=== PATIENT | female | born 1980 | race Caucasian/White ===

== ENCOUNTER 2020-07-05 18:46 | Observation (INO) | payer MEDICARE, OTHER ==
[~2020-07-05] VITALS: Ht 170.2 cm; Wt 125.2 kg
[2020-07-05 19:23] LABS: HEMATOCRIT 31.3 % (37.0-47.0); HEMOGLOBIN 9.6 g/dl (12.0-16.0); IMMATURE GRANULOCYTES 0.2 % (0.0-5.0); MEAN CELL VOLUME 90.2 fL CALC (80.0-100.0); MEAN CORPUSCULAR HGB 27.7 pG CALC (26.0-32.0); MEAN CORPUSCULAR HGB CONC 30.7 g/dL CAL (32.0-36.0); NEUT# 3.41 thou/uL (2.00-7.15); RED BLOOD COUNT 3.47 mill/uL (4.20-5.60); RED CELL DISTRI WIDTH 15.6 % (11.5-15.5)
[2020-07-05 19:40] LABS: INTERNATIONAL NORMALIZED RATIO 3.7 RATIO (0.7-1.3); PROTHROMBIN TIME 34.5 SECONDS (9.0-12.5)
[2020-07-05 19:41] LABS: ALBUMIN 4.2 g/dL (3.2-5.0); ALKALINE PHOSPHATASE 53 u/l (38-126); ANION GAP 9 (6-22 (CALC)); BILIRUBIN, TOTAL 0.2 mg/dL (0.0-1.4); BUN 10 mg/dL (7-17); BUN/CREATININE RATIO 13 (12-20 (CALC)); CARBON DIOXIDE 27 mmol/l (22-30); CHLORIDE 107 mmol/l (95-108); CREATININE 0.8 mg/dL (0.5-1.0); GFR > 60 ML/MIN (>=60 (CALC)); GFR FOR AFR.AMER. > 60 ML/MIN (>=60 (CALC)); LIPASE 77 u/l (23-300); POTASSIUM 3.4 mmol/l (3.5-5.1); SGOT/AST 17 u/l (14-36); SODIUM 140 mmol/l (137-146); TOTAL PROTEIN 7.5 g/dL (6.3-8.2)
[2020-07-05 19:53] LABS: MYOGLOBIN 21 ng/mL (0 - 62)
[2020-07-05 20:20] LABS: URINE BILIRUBIN - DIPSTICK NEGATIVE (NEGATIVE); URINE BLOOD DIPSTICK MODERATE (NEGATIVE); URINE COLOR YELLOW; URINE GLUCOSE - DIPSTICK NEGATIVE (NEGATIVE); URINE KETONE NEGATIVE (NEGATIVE); URINE LEUK ESTERASE NEGATIVE (NEGATIVE); URINE NITRITE - DIPSTICK NEGATIVE (Negative); URINE PH 5.5 (4.5-8.0); URINE PROTEIN - DIPSTICK NEGATIVE (NEG-TRACE); URINE SPECIFIC GRAVITY 1.015; URINE UROBILINOGEN - DIPSTICK 0.2 E.U./dL (0.2)
[2020-07-05 20:32] LABS: URINE SQUAMOUS EPITHELIAL CELL FEW EPI/hpf (0-FEW); URINE WBC 0-2 WBC/hpf (0-5)
[2020-07-05] MEDS ORDERED: COUMADIN1 MG PO (20:40)
[2020-07-05] MEDS ORDERED: COUMADIN10 MG PO (20:40)
[2020-07-05] MEDS ORDERED: COREG3.125 MG PO (20:41)
[2020-07-05] MEDS ORDERED: ZESTRIL5 M1 PO (20:42)
[2020-07-05] MEDS ORDERED: VENLAFAXINE75 M2 PO (20:42)
[2020-07-05] MEDS ORDERED: PREGABALIN50 MG PO (20:43)
[2020-07-05] MEDS ORDERED: IRON325 M1 PO (20:44)
[2020-07-05] MEDS ORDERED: LASIX20 MG PO (20:45)
[2020-07-05] MEDS ORDERED: LEVOTHYROXIN150 MC1 PO (20:45)
[2020-07-05] MEDS ORDERED: BUSPIRONE10 MG PO (20:46)
[2020-07-05] MEDS ORDERED: PROTONIX40 M2 PO (20:59)
[2020-07-05] MEDS ORDERED: K-TABS10 MEQ PO (21:00)
[2020-07-05] MEDS ORDERED: ATORVASTATIN CA40 MG PO (21:01)
[2020-07-05 22:20] VITALS: BP 150/99
[2020-07-05 23:54] VITALS: BP 134/78
[2020-07-06 04:11] VITALS: BP 129/85
[2020-07-06 05:58] LABS: HEMATOCRIT 31.4 % (37.0-47.0); HEMOGLOBIN 9.5 g/dl (12.0-16.0); IMMATURE GRANULOCYTES 0.3 % (0.0-5.0); MEAN CELL VOLUME 89.7 fL CALC (80.0-100.0); MEAN CORPUSCULAR HGB 27.1 pG CALC (26.0-32.0); MEAN CORPUSCULAR HGB CONC 30.3 g/dL CAL (32.0-36.0); NEUT# 1.75 thou/uL (2.00-7.15); RED BLOOD COUNT 3.5 mill/uL (4.20-5.60); RED CELL DISTRI WIDTH 15.6 % (11.5-15.5)
[2020-07-06 06:19] LABS: ANION GAP 8 (6-22 (CALC)); BUN 9 mg/dL (7-17); BUN/CREATININE RATIO 13 (12-20 (CALC)); CARBON DIOXIDE 27 mmol/l (22-30); CHLORIDE 109 mmol/l (95-108); CREATININE 0.7 mg/dL (0.5-1.0); GFR > 60 ML/MIN (>=60 (CALC)); GFR FOR AFR.AMER. > 60 ML/MIN (>=60 (CALC)); MAGNESIUM 1.9 mg/dL (1.6-2.3); POTASSIUM 3.7 mmol/l (3.5-5.1); SODIUM 139 mmol/l (137-146)
[2020-07-06 07:41] VITALS: BP 146/83
[2020-07-06 11:53] VITALS: BP 119/82
== END 2020-07-06 14:45 | disposition home or self-care (01) ==
LOC: ED 18:46 → ED-I 20:32 → ED 20:39 → MS2 20:40 → ED-I 20:40 → MS2 21:06
PROVIDERS: Emergency Medicine; ADMIT Internal Medicine; ATTEND Internal Medicine
DX: R07.9 Chest pain, unspecified (principal); I11.0 Hypertensive heart disease with heart failure; I50.9 Heart failure, unspecified; I48.91 Unspecified atrial fibrillation; E03.9 Hypothyroidism, unspecified; Z95.0 Presence of cardiac pacemaker; Z95.2 Presence of prosthetic heart valve; Z86.711 Personal history of pulmonary embolism; Z86.73 Personal history of transient ischemic attack (TIA), and cerebral infarction without residual deficits; Z20.828 Contact with and (suspected) exposure to other viral communicable diseases
CPT/HCPCS: G0378